=== PATIENT | female | born 1960 | race Caucasian/White ===

== ENCOUNTER 2018-02-17 08:06 | Emergency (ER) | payer OTHER ==
[2018-02-17 08:33] VITALS: BP 109/94
[2018-02-17] MEDS ORDERED: Cephalexin CAP* 500 MG PO ONE (09:02)
--- NOTE | 2018-02-17 09:02 | UC ---
Complaint Female HPI - HPI Summary HPI Summary: 57 yo female with UTI symptoms x 4 days no fever/chills no back pain IBS has been acting up - History Of Current Complaint Chief Complaint: UCGU Stated Complaint: URINARY COMPLAINT Time Seen by Provider: 02/17/18 08:57 Hx Obtained From: Patient Hx Last Menstrual Period: n/a Onset/Duration: Gradual Onset, Lasting Days Timing: Intermittent Severity Initially: Mild Severity Currently: Moderate Pain Intensity: 7 - with urination Pain Scale Used: 0-10 Numeric Character: Burning Aggravating Factor(s): Urination Associated Signs And Symptoms: Positive: Negative Related Hx: Similar Episode/Dx as: - UTI - Allergies/Home Medications Allergies/Adverse Reactions: Allergies Allergy/AdvReac Type Severity Reaction Status Date / Time codeine Allergy Vomiting Verified 02/17/18 08:26 hydrocodone Allergy Vomiting Verified 02/17/18 08:26 Sulfa (Sulfonamide Allergy Headache Verified 02/17/18 08:26 Antibiotics) Home Medications: Home Medications FLUoxetine CAP* [PROzac CAP*] 10 mg PO DAILY 02/17/18 [History Confirmed ] PMH/Surg Hx/FS Hx/Imm Hx Previously Healthy: Yes Respiratory History: Asthma GI/ History: Other Other GI/ History: IBS Psychological History: Anxiety, Depression - Surgical History Surgical History: Yes Surgery Procedure, Year, and Place: Hysterectomy, Lung surgery to remove a pin that was aspirated, appendectomy, 3x laproscopy, tonsillectomy, 2 dental surgeries - Family History Known Family History: Positive: Cardiac Disease, Hypertension, Respiratory Disease - Social History Alcohol Use: Rare Substance Use Type: None Smoking Status (MU): Former Smoker When Did the Patient Quit Smoking/Using Tobacco: 2007 - Immunization History Most Recent Tetanus Shot: 2012 Review of Systems Constitutional: Negative Skin: Negative Eyes: Negative ENT: Negative Respiratory: Negative Cardiovascular: Negative Gastrointestinal: Negative Genitourinary: Dysuria, Frequency, Urgency Motor: Negative Neurovascular: Negative Musculoskeletal: Negative Neurological: Negative Psychological: Negative Is Patient Immunocompromised?: No All Other Systems Reviewed And Are Negative: Yes Physical Exam Triage Information Reviewed: Yes Appearance: Well-Appearing, No Pain Distress, Well-Nourished Vital Signs: Initial Vital Signs Temp 98.5 F 02/17/18 08:29 Pulse 69 02/17/18 08:29 Resp 18 02/17/18 08:29 BP 109/94 02/17/18 08:29 Pulse Ox 100 02/17/18 08:29 Vital Signs Reviewed: Yes Eyes: Positive: Conjunctiva Clear Neck: Positive: Supple, Nontender Respiratory: Positive: Lungs clear, Normal breath sounds, No respiratory distress Cardiovascular: Positive: RRR, No Murmur Abdomen Description: Positive: Nontender, No Organomegaly. Negative: CVA Tenderness (R), CVA Tenderness (L) Bowel Sounds: Positive: Present Neurological: Positive: Alert Psychological Exam: Normal Skin Exam: Normal Complaint Female Dx - Course Course Of Treatment: Udip +++ leuks - Differential Dx/Diagnosis Provider Diagnoses: acute cystitis Discharge - Sign-Out/Discharge Documenting (check all that apply): Discharge - Discharge Plan Condition: Stable Disposition: HOME Prescriptions: Cephalexin CAP* [Keflex CAP*] 500 mg PO BID #10 cap Phenazopyridine TAB* [Pyridium TAB*] 100 mg PO TID #6 tab Patient Education Materials: Urinary Tract Infection in Women (ED) Forms: *Work Release Referrals: Mathew Barboza MD [Primary Care Provider] - 3 Days (if not better) Additional Instructions: recheck or new or worsening symptoms - Billing Disposition and Condition Condition: STABLE Disposition: HOME
[2018-02-17] MEDS ORDERED: Phenazopyridine TAB* 100 MG PO ONE (09:03)
== END 2018-02-17 09:12 | disposition home or self-care (01) ==
LOC: UCCORT 08:06
DX: N30.00 Acute cystitis without hematuria (principal); Z88.5 Allergy status to narcotic agent; Z88.2 Allergy status to sulfonamides
CPT/HCPCS: 81003; 87077; 87086; 87186; 99212; A9270-GY; G0463

== ENCOUNTER 2018-08-18 16:51 | Emergency (ER) | payer OTHER ==
--- OUTSIDE RECORDS SUMMARY | 2018-08-18 16:59 | XMS REPORT ---
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 Active Onset: 09/28/2011 Neck pain Janay Shell M.D. Active Onset: 09/28/2011 Allergic condition Janay Shell M.D. Active Onset: 04/10/2012 Diarrhea Janay Shell M.D. Active Onset: 09/05/2012 Migraine without aura, not refractory Mathew Barboza M.D. Active Onset: 09/05/2012 Anxiety state Mathew Barboza M.D. Active Onset: 09/05/2012 Depressive disorder Mathew Barboza M.D. Active Onset: 09/05/2012 Asthma without status asthmaticus Mathew Barboza M.D. Active Onset: 01/08/2013 Acute gastritis Mathew Barboza M.D. Active Onset: 01/08/2013 Malaise and fatigue Mathew Barboza M.D. Active Onset: 01/22/2013 Gastroesophageal reflux disease Mathew Barboza M.D. Active Onset: 03/19/2013 Irritable bowel syndrome Mathew Barboza M.D. Active Onset: 06/11/2013 Edema Mathew Barboza M.D. Active Onset: 07/09/2013 Acute sinusitis Mathew Barboza M.D. Active Onset: 07/02/2014 Rosacea Mathew Barboza M.D. Active Onset: 06/24/2015 Eruption Mathew Barboza M.D. Active Onset: 09/22/2015 Moderate recurrent major depression Mathew Barboza M.D. Active Onset: 06/14/2016 Conjunctivitis Mathew Barboza M.D. Active Onset: 10/29/2016 Mild intermittent asthma, Mathew Barboza M.D. 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 Cigarette Use Former Cigarette Smoker ETOH Use Rare Smoking Patient is a former smoker Exercise Type/Frequency Does not exercise Current Allergies, Adverse Reactions, Alerts Date Description Reaction Status Severity Comments 08/22/2009 codeine VOMITING active 08/22/2009 Vicodin VOMITING active 09/28/2011 Hydrocodone vomiting active 04/10/2012 Sulfa active Medications Medication Date Status Form Strength Qnty SIG Indications Ordering Provider Famotidine 04/20/ Active Tablets 40mg 30tabs 1 tab by [email or web address] Emelina 2018 mouth every Amy, 12 hours 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 HCL 2016 Two Capsules Midura, By Mouth M.D. Every Day For Anxiety And Depression Bupropion 08/15/ Active Tablets ER 100mg 60tabs Take Two F41.9 Mathew T. HCL ER (SR) 2014 12HR Tablets By Midura, Mouth Every M.D. Day F32.9 Proair HFA 01/16/2014 Active Aerosol 108(90Base) 8.500gm 2 puffs Mathew T. mcg/Act every 4 Midura, hours as M.D. 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 Dispers Tablet By Midura, Mouth AT M.D. Onset Of Migraine Then May Repeat In 2 Hours as Needed For Persistent Migraine Estradiol 10/21/2009 Active Tablets 1mg 30tabs Take One N Mathew T. Tablet By 9 Midura, Mouth Every 5 M.D. Day . 8 Doxycycline 05/19/2018 Hx Tablets 100mg 42tabs 1 by mouth L Emelina Hyclate - twice a day 0 Amy, 06/06/2018 for 21 days 3 SPLASH LINE OPERATOR . 3 1 3 Doxycycline 04/20/2018 Hx Capsules 100mg 14caps take one W Emelina Hyclate - capsule by 5 [facility], 05/19/2018 mouth twice 7 SPLASH LINE OPERATOR a day . x x x A Tobradex 06/14/2016 Hx Suspension 0.3-0.1% 5ml 1 GTT OS qid H Mathew T. - 1 , 09/14/2016 0 M.D. . 8 9 Acyclovir 09/22/2015 Hx Tablets 400mg 15tabs take 1 Mathew T. - tablet by , 04/20/2018 mouth three M.D. times a day Topiramate 09/22/2015 Hx Tablets 50mg 90tabs Take Three G Mathew T. - Tablets By 4 Mid, 04/20/2018 Mouth AT 3 M.D. Bedtime For . Migraine 0 Prevention 0 9 Fluocinonide 06/24/2015 Hx Solution 0.05% 60cc apply to 7 Mathew T. - affected 8 Mid, 09/22/2015 areas of the 2 M.D. scalp every . day as 1 needed Clotrimazole 06/24/2015 Hx Cream 1-0.05% 30gm apply twice 7 Mathew T. /Betamethaso - a day to 8 [facility], [place] 03/15/2016 affected 2 M.D. Dipropionate area as . Needed 1 Amoxicillin/ 07/02/2014 Hx Tablets 875-125mg 20tabs 1 bid w/ 4 Mathew T. Clavulanate - food. 6 [facility], Potassium 06/24/2015 1 M.D. . 8 Amoxicillin/ 01/16/2014 Hx Tablets 875-125mg 20tabs 1 po bid x 4 Isa Clavulanate - 10 days 6 Cedrick, [employer]GER IN[employer]MENT Potassium 01/26/2014 1 . 0 Prednisone 01/16/2014 Hx Tablets 20mg 10tabs 2 daily x 5 4 Isa - days 6 Cedrick MANAGER INVESTMENT 01/21/2014 6 . 0 Benzonatate 01/16/2014 Hx Capsules 100mg 30caps 1 po tid prn 4 Isa - for cough 6 ELOISA Philip 01/26/2014 6 . 0 Amoxicillin/ 07/09/2013 Hx Tablets 875-125mg 20tabs 1 po bid 4 Mathew T. Potassium - 6 [facility], Clavulanate 01/16/2014 1 M.D. . 8 Bumetanide 06/11/2013 Hx Tablets 1mg 30tabs 1 po qd prn 7 Mathew T. - for fluid 8 [facility], 01/16/2014 retention 2 M.D. . 3 Potassium 06/11/2013 Hx Tablets ER 20Meq 30tabs 1 po qd 7 Mathew T. Chloride ER - 8 [facility], 01/16/2014 2 M.D. . 3 Risperidone 05/06/2013 Hx Tablets 0.5mg 60tabs Take One Mathew T. - Tablet By [facility], 01/16/2014 Mouth Twice M.D. A Day Omeprazole 01/08/[address] 40mg 30caps Take One Mathew T. - Capsule By [facility], 06/14/2016 Mouth Every M.D. Morning For Stomach Topiramate 09/05/2012 Hx Tablets 50mg 120tabs take 3-4 3 Mathew T. - tablets at 4 [facility], 06/11/2013 bedtime for 6 M.D. headache . 1 0 Note For 04/25/2012 Hx patient may Janay Ontiveros Work - return to [facility], 09/05/2012 work without M.D. restrictions Note For 04/20/2012 Hx patient was Janay Ontiveros Work - unable to [facility], 04/25/2012 work 04/10/12 M.D. through 04/14/12 due to illness. Work Excuse 04/18/2012 Hx can only Constantine Burr - work half [employer], 09/05/2012 time this M.D. week call Metronidazol 04/10/2012 Hx Tablets 500mg 42tabs 1 po tid for 7 Janay King. e - 14 days 8 [facility], 09/05/2012 7 M.D. . 9 1 Note For 04/10/2012 Hx pt. is ill 7 Janay Ontiveros Work - and unable 8 [facility], 04/20/2012 to work at 7 M.D. this time; i . anticipate 9 she will 1 return 04/17/12 Proair HFA 09/28/2011 Hx Aerosol 108(90Base) 8.500gm 2 puffs Mathew T. - mcg/ac every 4 Midura, 01/16/2014 hours as M.D. needed Fexofenadine 09/28/2011 Hx Tablets 180mg 30tabs 1 po qd 9 Janay King. HCL - 9 [facility], 04/10/2012 5 M.D. . 3 Physical 09/28/2011 Hx dx: neck [facility]ay [facility]os [facility] headaches, M.D. cervicalgia; assess and treat Bactrim DS 06/24/2011 Hx Tablets 800-160mg 10tabs 1 po bid Emelina - von Kathy, 09/28/2011 M.D. Pyridium 06/24/2011 Hx Tablets 100mg 9tabs 1 tid prn Emelina - bladder pain tisha Chavez, 09/28/2011 M.D. Tramadol HCL 08/11/2010 Hx Tablets 50mg 60tabs 1 or 2 7 Janay M. - tablets 8 , 09/28/2011 every 8 4 M.D. hours as . needed 0 Physical 08/11/2010 Hx neck pain/ 7 Janay King. Therapy - headaches/ 2 [facility], 09/29/2010 degenerative 3 M.D. disc . disease: 1 assess and treat, hep Maxalt 08/11/2010 Hx Tablets 10mg 30tabs 1 tab at 7 Janay M. - onset of 8 [facility], 09/28/2011 migraine, 4 M.D. may repeat . in 2 hours 0 if needed for persistent migraine melting tablets Feet 04/14/2010 Hx patient has 7 Janay M. Swelling - intermittent 8 [facility], 09/29/2010 swelling of 2 M.D. feet that . requires the 3 wearing of sneakers Lidoderm 09/19/2009 Hx Patches 5% 30units apply bid , 3 Janay M. - prn 5 [facility], 02/23/2010 5 M.D. . 6 Maxalt 08/22/2009 Hx Tablets 5mg 9tabs one po prn, Janay M. - take another [facility], 08/11/2010 in two hours M.D. prn Albuterol 08/22/2009 Hx Aerosol 2 puffs Family - q4hrs prn Medicine 09/28/2011 [facility] Resperidone 08/22/2009 Hx 0.5mg 60units 1 po bid Mathew Barboza, 06/11/2013 M.D. Estratest 08/22/2009 Hx Tablets Family - Medicine 10/21/2009 [facility] Zoloft 08/22/2009 Hx Tablets 50mg 30tabs Take One Mathew Banks - Tablet By Jabari, 01/16/2014 Mouth Every M.D. Day Vital Signs Date Vital Result Comment 08/01/2018 BP Systolic 120 mmHg BP Diastolic 70 mmHg Heart Rate 72 /min Body Temperature 98.2 F Respiratory Rate 16 /min Weight 177.38 lb 06/06/2018 BP Systolic 110 mmHg BP Diastolic 68 mmHg Heart Rate 76 /min Body Temperature 98.2 F Respiratory Rate 18 /min Height 65.75 inches 5'5.75" Weight 180.00 lb BMI (Body Mass Index) 29.3 kg/m2 05/23/2018 BP Systolic 106 mmHg BP Diastolic 54 mmHg Heart Rate 74 /min Body Temperature 98.6 F Height 65.75 inches 5'5.75" Weight 177.00 lb BMI (Body Mass Index) 28.8 kg/m2 05/19/2018 BP Systolic 110 mmHg BP Diastolic 66 mmHg Heart Rate 74 /min Body Temperature 98.1 F Respiratory Rate 16 /min Height 65.75 inches 5'5.75" 04/20/2018 BP Systolic 120 mmHg BP Diastolic 80 mmHg Heart Rate 72 /min Body Temperature 98.6 F Respiratory Rate 16 /min Height 65.75 inches 5'5.75" Weight 181.00 lb BMI (Body Mass Index) 29.4 kg/m2 03/11/2017 BP Systolic 130 mmHg BP Diastolic 80 mmHg Heart Rate 78 /min Body Temperature 98.1 F Respiratory Rate 16 /min Height 65.75 inches 5'5.75" Weight 167.12 lb BMI (Body Mass Index) 27.2 kg/m2 01/04/2017 BP Systolic 120 mmHg BP Diastolic 78 mmHg Heart Rate 84 /min Body Temperature 98.2 F Height 65.75 inches 5'5.75" Weight 162.25 lb BMI (Body Mass Index) 26.4 kg/m2 10/29/2016 BP Systolic 134 mmHg BP Diastolic 84 mmHg Heart Rate 102 /min Body Temperature 98.1 F Respiratory Rate 18 /min Height 65.75 inches 5'5.75" Weight 165.38 lb BMI (Body Mass Index) 26.9 kg/m2 09/14/2016 BP Systolic 110 mmHg BP Diastolic 70 mmHg Heart Rate 78 /min Body Temperature 98.1 F Respiratory Rate 16 /min Height 65.75 inches 5'5.75" Weight 168.38 lb BMI (Body Mass Index) 27.4 kg/m2 06/14/2016 BP Systolic 100 mmHg BP Diastolic 60 mmHg Heart Rate 78 /min Body Temperature 97.7 F Respiratory Rate 16 /min Height 65.75 inches 5'5.75" Weight 166.25 lb BMI (Body Mass Index) 27.0 kg/m2 03/15/2016 BP Systolic 104 mmHg BP Diastolic 62 mmHg Heart Rate 60 /min Body Temperature 98.6 F Respiratory Rate 16 /min Height 65.75 inches 5'5.75" Weight 178.38 lb BMI (Body Mass Index) 29.0 kg/m2 01/20/2016 BP Systolic 124 mmHg BP Diastolic 72 mmHg Heart Rate 76 /min Body Temperature 98.0 F Respiratory Rate 16 /min Height 65.75 inches 5'5.75" Weight 180.00 lb BMI (Body Mass Index) 29.3 kg/m2 09/22/2015 BP Systolic 108 mmHg BP Diastolic 72 mmHg Heart Rate 80 /min Body Temperature 98.1 F Respiratory Rate 16 /min Height 65.75 inches 5'5.75" Weight 188.12 lb BMI (Body Mass Index) 30.6 kg/m2 Right Visual Acuity Distance 20/50 Left Visual Acuity Distance 20/30 08/15/2015 BP Systolic 126 mmHg BP Diastolic 70 mmHg Heart Rate 78 /min Body Temperature 98.9 F Respiratory Rate 16 /min Height 65.75 inches 5'5.75" Weight 191.50 lb BMI (Body Mass Index) 31.1 kg/m2 06/24/2015 BP Systolic 122 mmHg BP Diastolic 82 mmHg Heart Rate 74 /min Body Temperature 98.6 F Height 65.75 inches 5'5.75" Weight 192.00 lb BMI (Body Mass Index) 31.2 kg/m2 07/02/2014 BP Systolic 112 mmHg BP Diastolic 80 mmHg Heart Rate 84 /min Body Temperature 98.5 F Respiratory Rate 20 /min Height 65.75 inches 5'5.75" Weight 210.00 lb BMI (Body Mass Index) 34.1 kg/m2 06/05/2014 BP Systolic 132 mmHg BP Diastolic 80 mmHg Heart Rate 84 /min Body Temperature 97.9 F Respiratory Rate 20 /min Height 65.75 inches 5'5.75" Weight 207.00 lb BMI (Body Mass Index) 33.7 kg/m2 01/16/2014 BP Systolic 126 mmHg BP Diastolic 74 mmHg Heart Rate 90 /min Body Temperature 98.3 F Respiratory Rate 20 /min O2 % BldC Oximetry 98 % Height 65.75 inches 5'5.75" Weight 214.00 lb BMI (Body Mass Index) 34.8 kg/m2 07/09/2013 BP Systolic 110 mmHg BP Diastolic 80 mmHg Heart Rate 88 /min Body Temperature 98.3 F Height 65.75 inches 5'5.75" Weight 213.00 lb BMI (Body Mass Index) 34.6 kg/m2 06/11/2013 BP Systolic 104 mmHg BP Diastolic 70 mmHg Heart Rate 76 /min Body Temperature 98.9 F Respiratory Rate 18 /min Height 65.75 inches 5'5.75" Weight 216.00 lb BMI (Body Mass Index) 35.1 kg/m2 03/19/2013 BP Systolic 102 mmHg BP Diastolic 70 mmHg Heart Rate 88 /min Body Temperature 98.8 F Height 65.75 inches 5'5.75" Weight 208.00 lb BMI (Body Mass Index) 33.8 kg/m2 Right Visual Acuity Distance 20/40 Left Visual Acuity Distance 20/30 01/22/2013 BP Systolic 100 mmHg BP Diastolic 62 mmHg Heart Rate 80 /min Body Temperature 97.8 F Height 66 inches 5'6" Weight 210.00 lb BMI (Body Mass Index) 33.9 kg/m2 01/08/2013 BP Systolic 100 mmHg BP Diastolic 70 mmHg Heart Rate 72 /min Body Temperature 97.9 F Height 66 inches 5'6" Weight 210.00 lb BMI (Body Mass Index) 33.9 kg/m2 10/06/2012 BP Systolic 100 mmHg BP Diastolic 60 mmHg Heart Rate 72 /min Body Temperature 98.4 F Height 66 inches 5'6" Weight 205.00 lb BMI (Body Mass Index) 33.1 kg/m2 09/05/2012 BP Systolic 110 mmHg BP Diastolic 60 mmHg Heart Rate 78 /min Body Temperature 98.5 F Respiratory Rate 20 /min Height 66 inches 5'6" Weight 208.00 lb BMI (Body Mass Index) 33.6 kg/m2 04/10/2012 BP Systolic 106 mmHg BP Diastolic 70 mmHg Heart Rate 84 /min Body Temperature 98.6 F Height 66 inches 5'6" Weight 202.00 lb BMI (Body Mass Index) 32.6 kg/m2 09/28/2011 BP Systolic 120 mmHg BP Diastolic 70 mmHg Heart Rate 72 /min Body Temperature 97.5 F Height 66 inches 5'6" Weight 199.00 lb BMI (Body Mass Index) 32.1 kg/m2 08/11/2010 BP Systolic 108 mmHg BP Diastolic 70 mmHg Heart Rate 72 /min Body Temperature 97.2 F Height 66 inches 5'6" Weight 204.00 lb BMI (Body Mass Index) 32.9 kg/m2 04/14/2010 BP Systolic 102 mmHg BP Diastolic 68 mmHg Heart Rate 76 /min Weight 207.00 lb 03/31/2010 BP Systolic 102 mmHg BP Diastolic 72 mmHg Heart Rate 68 /min Weight 207.00 lb 02/27/2010 BP Systolic 98 mmHg BP Diastolic 78 mmHg Heart Rate 74 /min Weight 200.00 lb 02/23/2010 BP Systolic 102 mmHg BP Diastolic 70 mmHg Heart Rate 72 /min Weight 200.00 lb 12/10/2009 BP Systolic 100 mmHg BP Diastolic 70 mmHg Heart Rate 68 /min Respiratory Rate 18 /min Height 66 inches 5'6" Weight 191.00 lb BMI (Body Mass Index) 30.8 kg/m2 10/21/2009 BP Systolic 98 mmHg BP Diastolic 60 mmHg Heart Rate 72 /min Height 66 inches 5'6" Weight 191.00 lb BMI (Body Mass Index) 30.8 kg/m2 09/19/2009 BP Systolic 110 mmHg BP Diastolic 72 mmHg Heart Rate 72 /min Body Temperature 98.1 F Respiratory Rate 16 /min Weight 195.00 lb 08/22/2009 BP Systolic 112 mmHg BP Diastolic 74 mmHg Heart Rate 80 /min Height 66 inches 5'6" Weight 194.00 lb BMI (Body Mass Index) 31.3 kg/m2 Results Test Date Test Result H/L Range Note Lyme, Western Blot, Serum 05/19/2018 IgG P93 Ab. Absent 1 IgG P66 Ab. Absent 1 IgG P58 Ab. Absent 1 IgG P45 Ab. Absent 1 IgG P41 Ab. Absent 1 IgG P39 Ab. Absent 1 IgG P30 Ab. Absent 1 IgG P28 Ab. Absent 1 IgG P23 Ab. Absent 1 IgG P18 Ab. Absent 1 Lyme IgG WB Interp. Negative 1, 2 IgM P41 Ab. Absent 1 IgM P39 Ab. Absent 1 IgM P23 Ab. Absent 1 Lyme IgM WB Interp. Negative 1, 3 Comprehensive Metabolic Prof 04/20/2018 Sodium 134 mEq/L 134-149 Potassium 3.9 mEq/L 3.6-5.5 Chloride 96 mEq/L 94-112 Carbon Dioxide 26 mEq/L 21-32 Glucose 87 mg/dL 70-105 BUN 15 mg/dL 6-26 Creatinine 1.1 mg/dL 0.6-1.4 BUN/Creat Ratio 13.6 CALC 8.0-36.0 Calcium 9.3 mg/dL 8.6-10.2 Total Protein 6.6 g/dL 6.4-8.3 Albumin 4.3 g/dL 3.8-5.5 Globulin 2.3 g/dL 2.0-4.8 A/G Ratio 1.9 CALC 0.6-2.3 Alk. Phosphatase 50 U/L 30-110 Alt (SGPT) 15 U/L 7-35 Ast (Sgot) 8 U/L 5-34 Total Bilirubin 0.4 mg/dL 0.2-1.3 GFR Non- 55 ml/min/1.73m^ Low >=60 GFR >60 ml/min/1.73m^ >=60 Laboratory test finding 04/20/2018 TSH 2.85 mIU/L 0.50-6.00 Free T4 1.01 ng/dL 0.75-1.54 CBC Electronic ([facility] New) 04/20/2018 WBC 5.27 4.0-10.0 RBC 4.47 3.93-6.0 Hemoglobin (Fma/CMC/CTX) 13.3 g/dL 12.0-17.0 Hematocrit (Fma/CMC/CTX) 38.5 % 35.0-50.0 Mean Corpuscular Vol 86.1 fL 80-95 Mean Corpuscular Hemoglobin 29.8 pg 25.6-32.2 Mean Corpuscular Hemo Concen 34.5 g/dL 32.2-36.0 Platelets 230 10^3/ul 163-400 RDW-CV 11.7 11.6-14.4 Mean Platelet Volume 10.3 fL 9.4-12.4 Absolute Neutrophils BLD 3.00 1.56-6.13 Absolute Lymphocytes 1.49 1.18-3.74 Absolute Monocytes BLD Auto 0.52 0.24-0.82 Absolute Eos Blood 0.21 0.04-0.54 Absolute Basophils 0.04 0.01-0.08 Neutrophil % 56.8 34.0-70.0 Lymph% 28.3 % 20.0-52.0 Monocytes % 9.9 % 5.0-12.0 Eos % 4.0 % 0.7-7.0 Basophil% 0.8 % 0.1-1.2 Lyme, Western Blot, Serum 04/20/2018 IgG P93 Ab. Absent 1 IgG P66 Ab. Absent 1 IgG P58 Ab. Absent 1 IgG P45 Ab. Absent 1 IgG P41 Ab. Absent 1 IgG P39 Ab. Absent 1 IgG P30 Ab. Absent 1 IgG P28 Ab. Absent 1 IgG P23 Ab. Absent 1 IgG P18 Ab. Absent 1 Lyme IgG WB Interp. Negative 1, 4 IgM P41 Ab. Absent 1 IgM P39 Ab. Absent 1 IgM P23 Ab. Absent 1 Lyme IgM WB Interp. Negative 1, 5 Poc Urinalysis 02/17/2018 Poc Glucose, Urine Negative Negative Poc Bilirubin, Urine Negative Negative Poc Ketone, Urine Negative Negative Poc Specific [place], Urine 1.020 1.010-1.030 Poc Blood, Urine Trace-lysed Negative Poc pH, Urine 5.5 5-9 Poc Protein, Urine Negative Negative Poc Urobilinogen, Urine 0.2 Negative Poc Nitrite, Urine Negative Negative Poc Leukocytes, Urine 3+ Negative Poc Color, Urine Yellow Poc Clarity, Urine Cloudy 6 Laboratory test 02/17/2018 Urine Culture And SEE RESULT BELOW 7, 8 finding Sensitivities Laboratory test 10/25/2017 Surgical Interface Order SEE RESULT BELOW 9 , 10 finding Vaginitis Plus Nuswab 01/04/2017 Atopobium vaginae High - 2 Score 11 Bvab 2 High - 2 Score 11 Megasphaera 1 High - 2 Score 11, 12 Kaylin albicans, Lindsay Negative Negative 11 Kaylin glabrata, Lindsay Negative Negative 11, 13 Trich vag by Lindsay Negative Negative 11 Chlamydia trachomatis, Lindsay Negative Negative 11 Neisseria gonorrhoeae, Lindsay Negative Negative 11 Complete Blood Count 09/22/2015 WBC 6.5 x10^3/UL 3.6-9.6 RBC 4.91 x10^6/UL 3.90-5.70 HGB 14.5 g/dL 12.1-17.2 HCT 43 % 36-50 MCV 88.0 fL 82.2-97.4 MCH 29.6 pg 27.6-33.3 MCHC 33.5 g/dL 33.0-35.5 RDW 13.2 % 11.6-13.7 PLT 241 x10^3/UL 150-400 MPV 8.2 fL 7.4-10.4 Gran # 4.3 x10^3/UL 1.5-7.2 Lymph# 1.9 x10^3/UL 0.7-4.9 [place]# 0.3 x10^3/UL 0.1-0.9 Gran % 64.6 % 42.2-75.2 Lymph % 29.9 % 20.5-51.1 [place]% 5.5 % 1.7-9.3 Comprehensive Metabolic Prof 09/22/2015 Sodium 141 mEq/L 134-149 Potassium 4.3 mEq/L 3.6-5.5 Chloride 100 mEq/L 94-112 Carbon Dioxide 25 mEq/L 21-32 Glucose 103 mg/dL 70-105 BUN 16 mg/dL 6-26 Creatinine 1.1 mg/dL 0.6-1.4 BUN/Creat Ratio 14.5 CALC 8.0-36.0 Calcium 9.4 mg/dL 8.6-10.2 Total Protein 7.0 g/dL 6.4-8.3 Albumin 4.5 g/dL 3.8-5.5 Globulin 2.5 g/dL 2.0-4.8 A/G Ratio 1.8 CALC 0.6-2.3 Alk. Phosphatase 63 U/L 30-110 Alt (SGPT) 20 U/L 7-35 Ast (Sgot) 13 U/L 5-34 Total Bilirubin 0.5 mg/dL 0.2-1.3 GFR Non- 55 ml/min/1.73m^ Low >=60 GFR >60 ml/min/1.73m^ >=60 Lipid Profile 09/22/2015 Cholesterol 227 mg/dL High 120-200 Triglycerides 238 mg/dL High 30-200 HDL Cholesterol 49 mg/dL 30-85 LDL (Calculated) 130 CALC High 0-129 VLDL Cholesterol 48 mg/dL 0-50 HDL Risk Factor 4.6 CALC High 0.0-4.4 Ua - Non Micro (Fma) 09/22/2015 Appearance clear Color yellow Glucose, Urine (Fma/CMC/CTX) neg Bilirubin neg Ketones neg SP Grav <1.005 Blood neg PH 6.0 Protein neg Urobil 0.2 Nitrite neg Leukocytes (a/[facility]/[facility]) neg Urine Culture And 12/24/2014 Urine Culture (SEE NOTE) 14 Sensitivities Laboratory test finding 06/05/2014 C Reactive Protein 11.93 mg/L High < 5.00 15 Transglutaminase Igg & 06/05/2014 Tissue Transglutaminase <1.2 U/mL 16 Iga IgA Ab Tissue Transglutaminase IgG Ab <1.2 U/mL 17 Anti Gliadin Igg And Iga AB 06/05/2014 Gliadin IgG <10.0 U 18 Gliadin IgA <10.0 U 19 Laboratory test finding 06/05/2014 Sed Rate (a/[facility] [place]/[facility]) 6mm Ua - Non Micro (Fma) 03/19/2013 Appearance yellow Color clear Glucose neg Bilirubin neg Ketones neg SP Grav 1.025 Blood neg PH 5.5 Protein neg Urobil 0.2 Nitrite neg Leukocytes (Fma/CMC/[facility]) neg Laboratory test finding 03/19/2013 LDL (Direct) 128 mg/dL 0-130 Lipid Profile 03/19/2013 Cholesterol 255 mg/dL High 120-200 HDL 43 mg/dL 30-85 Triglycerides 384 mg/dL High 30-200 HDL Risk Factor 6.0 CALC High 0.0-4.4 LDL (Calculated) 135 CALC High 0-129 20 VLDL (Calculated) 77 mg/dL High 0-50 CBC Electronic (a) 01/08/2013 WBC 6.0 3.6-9.6 RBC 4.82 3.90-5.70 Hemoglobin (Fma/CMC/CTX) 14.4 g/dL 12.1 - 17.2 Hematocrit (Fma/CMC/CTX) 42.6 % 36.1 - 50.3 Platelets 204 10^3/ul 150-400 Lymph% 31.7 20.5-51.1 Mixed% 4.7 Neutrophils % 63.6 Mean Corpuscular Vol 88 82.2-97.4 Mean Corpuscular Hemoglobin 29.9 27.6-33.3 Mean Corpuscular Hemo Concen 33.8 32.0-36.0 RDW 11.4 Low 11.6-13.7 Mean Platelet Volume 8.4 6.5-11.0 Laboratory test finding 01/08/2013 Free T4 0.95 ng/dL 0.75-1.54 TSH 2.90 mIU/L 0.50-6.00 Comprehensive Metabolic Prof 01/08/2013 Albumin 4.6 g/dL 3.8-5.5 Alk. Phos. 76 U/L 30-110 Alt (SGPT) 19 U/L 7-35 Ast (Sgot) 13 U/L 5-34 BUN 21 mg/dL 6-26 Calcium 9.9 mg/dL 8.6-10.2 Chloride 102 mEq/L 94-112 Creatinine 1.2 mg/dL 0.6-1.4 Carbon Dioxide 23 mEq/L 21-32 Glucose 101 mg/dL 70-105 Sodium 137 mEq/L 134-149 Total Bilirubin 0.3 mg/dL 0.2-1.3 Total Protein 7.3 g/dL 6.3-8.1 Potassium 4.4 mEq/L 3.6-5.5 Globulin 2.7 g/dL 2.0-4.8 A/G Ratio 1.7 Calc 0.6-2.3 BUN/Creat Ratio 18.4 Calc 8.0-36.0 Laboratory test finding 10/10/2012 Surgical Pathology RUN DATE: <SEE NOTE> Culture Stool 04/10/2012 M 22 <SEE NOTE> Comprehensive Metabolic 04/10/2012 Albumin 4.4 g/dL 3.8-5.5 Prof King Phos. 78 U/L 30-110 Alt (SGPT) 13 U/L 7-35 Ast (Sgot) 8 U/L 5-34 BUN 14 mg/dL 6-26 Calcium 9.1 mg/dL 8.6-10.2 Chloride 95 mEq/L 94-112 Creatinine 1.1 mg/dL 0.6-1.4 Carbon Dioxide 24 mEq/L 21-32 Glucose 95 mg/dL 70-105 Sodium 135 mEq/L 134-149 Total Bilirubin 0.5 mg/dL 0.2-1.3 Total Protein 6.6 g/dL 6.3-8.1 Potassium 4.0 mEq/L 3.6-5.5 Globulin 2.3 g/dL 2.0-4.8 A/G Ratio 1.9 Calc 0.6-2.2 BUN/Creat Ratio 12.9 Calc 8.0-36.0 CBC Electronic ([facility]) 04/10/2012 WBC 10.5 High 3.6-9.6 RBC 4.59 3.90-5.70 Hemoglobin (Fma/CMC/CTX) 13.5 g/dL 12.1 - 17.2 Hematocrit (Fma/CMC/CTX) 42.0 % 36.1 - 50.3 Platelets 278 10^3/ul 150-400 Lymph% 18.7 Low 20.5-51.1 Mixed% 4.0 Neutrophils % 77.3 Mean Corpuscular Vol 91 82.2-97.4 Mean Corpuscular Hemoglobin 29.3 27.6-33.3 Mean Corpuscular Hemo Concen 32.1 32.0-36.0 RDW 13.5 11.6-13.7 Mean Platelet Volume 7.7 6.5-11.0 Ua - Non Micro ([facility]) 12/10/2009 Appearance CLEAR Color YELLOW Glucose, Urine (Fma/CMC/CTX) NEG Bilirubin ICTO NEG Ketones TRACE SP Grav 1.020 Blood NEG PH 6.0 Protein NEG Urobil 1.0EU/DL Nitrite NEG Leukocytes ([facility] [place]/[facility]) NEG Surgical Pathology 10/06/2009 Surgical Pathology <SEE NOTE > 23 1 1 sst 2 Positive: 5 of the following Borrelia-specific bands: 18,23,28,30,39,41,45,58, 66, and 93. Negative: No bands or banding patterns which do not meet positive criteria. 3 Note: An equivocal or positive EIA result followed by a negative Western Blot result is considered NEGATIVE. An equivocal or positive EIA result followed by a positive Western Blot is considered POSITIVE by the CDC. Positive: 2 of the following bands: 23,39 or 41 Negative: No bands or banding patterns which do not meet positive criteria. Criteria for positivity are those recommended by CDC/[facility]. p23=Osp C, x93=topchhqcc Note: Sera from individuals with the following may cross react in the Lyme Western Blot assays: other spirochetal diseases (periodontal disease, leptospirosis, relapsing fever, yaws, and pinta); connective autoimmune (Rheumatoid Arthritis and Systemic Lupus Erythematosus and also individuals with Antinuclear Antibody); other infections (Montura Spotted Fever; Gary-Broderick Virus, and Cytomegalovirus). 4 Positive: 5 of the following Borrelia-specific bands: 18,23,28,30,39,41,45,58, 66, and 93. Negative: No bands or banding patterns which do not meet positive criteria. 5 Note: An equivocal or positive EIA result followed by a negative Western Blot result is considered NEGATIVE. An equivocal or positive EIA result followed by a positive Western Blot is considered POSITIVE by the CDC. Positive: 2 of the following bands: 23,39 or 41 Negative: No bands or banding patterns which do not meet positive criteria. Criteria for positivity are those recommended by CDC/ASTPHLD. p23=Osp C, o66=eijdjjxnt Note: Sera from individuals with the following may cross react in the Lyme Western Blot assays: other spirochetal diseases (periodontal disease, leptospirosis, relapsing fever, yaws, and pinta); connective autoimmune (Rheumatoid Arthritis and Systemic Lupus Erythematosus and also individuals with Antinuclear Antibody); other infections (Montura Spotted Fever; Gary-Broderick Virus, and Cytomegalovirus). 6 Strike On Machine Operator: [id number] SEE RESULT BELOW Name: BENSONSOFÍA S : [address]: Luís Hankins MD Acct: [id number] Unit: [id number] AGE: 57 Location: [facility] Re02/17/18 SEX: F Status: DEP ER SPEC: [id number] SADA: 02/17/[address] [facility] [address]: Luís Hankins MD REQ: [id number] RECD: 02/17/18 STATUS: STACIA BARNES DR: Mathew Barboza MD [facility] _ SOURCE: URINE SPDESC: ORDERED: Urine Culture COMMENTS: [id number] Procedure Result Reported Site Urine Culture Final 02/20/18- 812 ML Organism 1 STAPHYLOCOCCUS EPIDERMIDIS [place] Count >100,000 (Many) CFU/ML 1. STAPHYLOCOCCUS EPIDERMIDIS M.I.C. RX --------- ------ Penicillin >=0.5 R Gentamicin <=0.5 S Linezolid 2 S Nitrofurantoin <=16 S Oxacillin <=0.25 S * Quinupristin/Dalfopristin <=0.25 S Rifampin <=0.5 S Tetracycline 2 S Doxycycline - Deduced S * Minocycline - Deduced S Tigecycline 0.25 S Vancomycin 1 S Imipenem-Deduced S * Ampicillin/Sulbactam-Deduced S Cefazolin-Deduced S CONTINUED ON NEXT PAGE DEPARTMENT OF PATHOLOGY, [address] [place] [address] Ant Balbuena M.D. Director [facility] # [id number] Patient: SOFÍA KNOWLES [id number] (Continued) Specimen: [id number] Collected: 02/17/18 Received: 02/17/18 (Continued) Procedure Result Reported Site Urine Culture Final (continued) * These antibiotics are not available in the [facility] Formulary Contact the Microbiology Department for any additional antibiotic reporting. * ML - Main Lab . END OF REPORT DEPARTMENT OF PATHOLOGY, [address] [place] [address] Ant Balbuena M.D. Director [facility] # [id number] SEE RESULT BELOW Name: SOFÍA KNOWLES : [address]: Sher Ross MD Acct: [id number] Unit: [id number] AGE: 56 Location: [facility] Re/28/17 SEX: F Status: DEP REF SPEC: [id number] SADA: 10/25/[address] [facility] [address]: Sher Ross MD REQ: [id number] RECD: 10/25/17 STATUS: KENDRA BARNES DR: Mahtew Barboza MD _ ORDERED: LEVEL 4 COMMENTS: [id number] FINAL DIAGNOSIS Colon, at 10 cm, biopsy: -- Hyperplastic polyp. CLINICAL HISTORY Screening, increased risk, history of polyps POST-OPERATIVE DIAGNOSIS Colonoscopy to terminal ileum ? polyp at 10 cm biopsied; 10 years GROSS DESCRIPTION The specimen is received in formalin labeled, Biopsy Colon Polyp at 10 cm, and consists of a 0.3 x 0.2 x 0.1 cm huerta-white irregular soft tissue fragment which is submitted entirely in one cassette. Signed (signature on file) Emelina Valenzuela MD 1056 END OF REPORT * ML=Testing performed at Main Lab DEPARTMENT OF PATHOLOGY, [address] [place] [address] Ant Balbuena M.D. Director [facility] # [id number] 11 1 aptima swab 12 Calculate total score by adding the 3 individual bacterial vaginosis (BV) marker scores together. Total score is interpreted as follows: Total score 0-1: Indicates the absence of BV. Total score 2: Indeterminate for BV. Additional clinical data should be evaluated to establish a diagnosis. Total score 3-6: Indicates the presence of BV. This test was developed and its performance characteristics determined by [employer]. It has not been cleared or approved by the Food and Drug Administration. The FDA has determined that such clearance or approval is not necessary. 13 This test was developed and its performance characteristics determined by [facility]. It has not been cleared or approved by the Food and Drug Administration. The FDA has determined that such clearance or approval is not necessary. 14 RUN DATE: 12/26/14 [facility] LAB LIVE PAGE 1 RUN TIME: [address] [place] [address] Specimen Inquiry Name: SOFÍA KNOWLES : [address]: Luís Hankins MD Acct: [id number] Unit: [id number] AGE: 54 Location: [facility] Re12/24/14 SEX: F Status: DEP ER SPEC: [id number] SADA: 12/24/[address] [facility] [address]: Luís Hankins MD REQ: [id number] RECD: 12/24/14 STATUS: STACIA BARNES DR: Mathew Barboza MD _ SOURCE: URINE SPDESC: ORDERED: Urine Culture Procedure Result Verified Site Urine Culture Final 12/26/14- 0857 ML Organism 1 ESCHERICHIA COLI [place] Count 25-50,000 (Moderate) CFU/ML 1. ESCHERICHIA COLI M.I.C. RX --------- ------ Ampicillin 4 S Cefazolin <=4 S Cefepime <=1 S Ceftriaxone <=1 S Ciprofloxacin <=0.25 S Gentamicin <=1 S Levofloxacin <=0.12 S Meropenem <=0.25 S Nitrofurantoin <=16 S Tetracycline <=1 S Pipercillin/Tazobactam <=4 S Trimethoprim/Sulfamethoxazole <=20 S Amoxicillin/Clavulanic Acid <=2 S Aztreonam <=1 S Contact the Microbiology Department for any additional antibiotic reporting. END OF REPORT * ML=Testing performed at Main Lab DEPARTMENT OF PATHOLOGY, [address] [place] [address] Ant Balbuena M.D. Director [facility] # [id number] Acute inflammation: >10.00 16 -- REFERENCE VALUE -- <4.0 (Negative) 17 -- REFERENCE VALUE -- <6.0 (Negative) Test Performed by: [facility] - [address] [address] Developer Support Engineer: Torito Santos III, M.D. 18 -- REFERENCE VALUE -- <20.0 (Negative) Test Performed by: [address] [address] Developer Support Engineer: Torito Santos III, M.D. 19 -- REFERENCE VALUE -- <20.0 (Negative) 20 invalid 21 RUN DATE: 10/11/12 [facility] LAB LIVE PAGE 1 RUN TIME: [address] [place] [address] Specimen Inquiry Name: SOFÍA KNOWLES : [address]: Sher Ross MD Acct: [id number] Unit: [id number] AGE: 51 Location: [facility] Re10/10/12 SEX: F Status: REG REF SPEC: [id number] SADA: 10/10/12- SUBM DR: Sher Ross MD REQ: [id number] RECD: 10/10/121135 STATUS: KENDRA BARNES DR: Kaushal REYES,Pietro _ ORDERED: LEVEL IV/2 FINAL DIAGNOSIS 1. Colon, terminal ileum, biopsy: Hyperplastic polyp. 2. Colon, 10 cm., biopsy: A. Tubular adenoma. B. No high grade dysplasia or malignancy. CLINICAL HISTORY Personal history of polyps POST-OPERATIVE DIAGNOSIS To terminal ileum - 2 polyps, one at 30 (2 mm.) and one at 10 (2 mm.) both biopsied GROSS DESCRIPTION 1. The specimen is received in formalin labelled Sofía Knowles, Biopsy Colon Polyp at 30 cm., and consists of multiple huerta, soft tissue fragments measuring 0.5 x 0.2 x 0.1 cm. Submitted entirely, one cassette. 2. The specimen is received in formalin labelled Sofía S. Benson, Biopsy Colon Polyp at 10 cm., and consists of a huerta, soft tissue fragment measuring 0.2 x 0.2 x 0.2 cm. Submitted entirely, one cassette. Signed (signature on file) Ant Balbuena MD 1558 END OF REPORT * ML=Testing performed at Main Lab DEPARTMENT OF PATHOLOGY, [address] [place] [address] Ant Balbuena M.D. Director [facility] Permit #[id number] RUN DATE: 04/12/12 [facility] LIVE PAGE 1 RUN TIME: 1233 Specimen Inquiry RUN USER: INTERFACE Name: SOFÍA KNOWLES Status: REG REF Re04/10/12 Age/Sex: 51/F Unit#: [id number] Location: [facility] : 62 SPEC #: [id number] SADA: 04/10/12 STATUS: COMP REQ #: [id number] RECD: 04/10/12-[address] [facility] [address]: Janay Shell MD SOURCE: STOOL ENTR: 04/10/12-[address]: SPDESC: ORDERED: STOOL CULTURE, O P: KRISTIAN/KHLOE C. DIFF AMP DNA, STL LACTOFERRIN COMMENTS: VERBAL TO ISABELA DEUTSCH (FAMILY MED) BY BRISA at 1443 on 04/11/12. Results read back accurately. ACT WKST: CDT 04/11/12 #1 SH 04/11/12 #1 Procedure Result Verified Site > STOOL CULT SENSITIVITY Final 04/12/12- 0833 ML NEGATIVE FOR THE ENTERIC PATHOGENS - SALMONELLA, SHIGELLA, AEROMONAS, PLESIOMONAS AND YERSINIA. VIBRIO AND E. COLI 0157 NOT ROUTINELY TESTED FOR IN A STOOL CULTURE. PLEASE SUBMIT SAMPLE WITH SPECIFIC REQUEST FOR DESIRED ORGANISM(S). > STOOL SPECIMEN DESCRIPTION Final 04/10/12- 1440 ML STOOL COLOR BROWN STOOL FORM NONFORMED STOOL CONSISTENCY LIQUID OTHER COMMENTS THICK > CAMPYLOBACTER CULTURE Final 04/12/12- 0833 ML NO GROWTH OF CAMPYLOBACTER AFTER 48 HOURS > SHIGA TOXIN 1 AND 2 (EHEC) Final 04/12/12- 1233 ML SHIGA TOXIN 1 NEGATIVE BY IMMUNOCHROMATOGRAPHIC ASSAY SHIGA TOXIN 2 NEGATIVE BY IMMUNOCHROMATOGRAPHIC ASSAY > O P: GIARDIA/CRYPTO SCREEN Final 04/11/12- 1246 ML GIARDIA ANTIGEN NEGATIVE BY IMMUNOASSAY CRYPTOSPORIDIUM ANTIGEN NEGATIVE BY IMMUNOASSAY Giardia and cryptosporidium antigen testing performed by immunoassay. If patient is immunocompromised or has traveled to or is from a developing country, a full ova and parasite exam with microscopic (OPMIC) is recommended. All samples will be held one month in case full ova and parasite testing is requested. Contact the Microbiology Department at [phone]. TEST LIMITATIONS: DEPARTMENT OF PATHOLOGY, [address] [place] [address] [facility] Permit #[id number] Ant Balbuena M.D. Director Hiram Velásquez M.D. Prosthetic Dentist RUN DATE: 04/12/12 [facility] NMI LIVE PAGE 2 RUN TIME: 1233 Specimen Inquiry RUN USER: INTERFACE Name: SOFÍA KNOWLES Status: REG REF Re04/10/12 Age/Sex: 51/F Unit#: [id number] Location: [facility] : 62 -- -- CONTINU ED Procedure Result Verified Site O P: GIARDIA/CRYPTO SCREEN Final (continued) 04/11/12- 1246 As with all diagnostic procedures, the results obtained should be used in conjunction with other clinical information available the physician. Negative results can occur in samples containing antigen below lower limits of detection of the assay. The use of colonic washes, aspirates or other diluted sample types has not been established and could affect the performance of the assay. Stool samples contaminated with an oily or particulate base (eg. Barium, mineral oil etc.) could interfere with the test and are not recommended. > C. DIFFICILE AMPLIFIED DNA Final 04/11/12- 1444 ML C. DIFFICILE AMPLIF DNA POSITIVE: TOXIGENIC C. DIFFICILE WITH PATHOGEN LOCUS (PALOC) TEST LIMITATIONS: Assay does not distinguish between viable and non-viable organisms. Test results are to be used in conjunction with information available from the patient clinical evaluation and other diagnostic procedures. Two distinct groups have been identified that can harbor C. difficile asymptomatically at very high rates. Colonization at rates up to 50% and higher have been reported in infants and rates up to 32% in cystic fibrosis patients. > FECAL LACTOFERRIN (STOOL WBC) Final 04/11/12- 1409 ML FECAL LACTOFERRIN POSITIVE BY IMMUNOASSAY TEST LIMITATIONS: Assay detects elevated levels of lactoferrin released from fecal leukocytes as a marker of intestinal inflammation. The test may not be appropriate in immunocompromised persons. Fecal samples from breast fed infants should not be used with this assay. [facility] Permit #[id number] [address] [place] [address] DEPARTMENT OF PATHOLOGY, [address] [place] [address] [facility] Permit #[id number] Filomena Barnes M.D. Prosthetic Dentist 23 ---- RUN DATE: 10/08/09 [facility] NMI LIVE PAGE 1 RUN TIME: 1345 Specimen Inquiry RUN USER: INTERFACE -- Name: SOFÍA KNOWLES Status: REG REF Re10/06/09 Age/Sex: 48/F Unit#: [id number] Location: [facility] : 62 -- Specimen: [id number] Spec Date: 10/06/[address]: Sher jose MD Spec Type: SURGICAL P Received: 10/07/09-1149 Copies to: Janay Perry SPECIMEN 1) COLON POLYP AT 20 CM. 2) COLON POLYP AT 10 CM. HISTORY CLINICAL INFORMATION: Abdominal pain, increased frequency of stools like peanut butter , no weight loss. Irritable bowel syndrome GROSS DESCRIPTION 1) The specimen is received in formalin labelled Sofía Chichi Benson, Colon Polyp at 20 cm., and consists of a polypoid dark brown fragment of tissue measuring 1.3 x 1.0 x 0.5 cm. without a stalk. Bisected and submitted entirely in one cassette labelled 1. 2) The specimen is received in formalin labelled Sofía Knowles, Colon Polyp at 10 cm., and consists of one fragment of huerta-yellow tissue measuring 0.5 x 0.4 x 0.3 cm. Submitted entirely, one cassette labelled 2. DIAGNOSIS 1) Colon at 20 cm., biopsy: A. Tubulovillous adenoma. B. No high grade dysplasia or malignancy. 2) Colon at 10 cm., biopsy: A. Tubular adenoma. B. No high grade dysplasia or malignancy. Signed Electronically by: HIRAM VELÁSQUEZ 10/08/09 1345 -- -- DEPARTMENT OF PATHOLOGY, [address] [place] [address] [facility] Permit #[id number] Ant Balbuena M.D. Director Hiram Velásquez M.D. Property Custodian Dir sanchezor -- Procedures Date CPT Code Description Status 06/09/2018 Mammogram Completed 10/01/2016 Mammogram Completed 10/01/2015 Mammogram Completed 09/22/2015 02757 Vision Test- screening test of visual acuity, Completed quantitative, bila 01/16/2014 89402 Pulse Oximetry Completed 03/23/2013 Mammogram Completed 03/19/2013 75307 Vision Test- screening test of visual acuity, Completed quantitative, bila 10/10/2012 Colonoscopy Completed Encounters Type Date Location Provider CPT E/M Dx Office Visit 08/01/2018 10:00a [facility] Miley Lowe, [employer]NA[employer] IN[employer] 38800 N63.20 R53.83 M25.532 Office Visit 06/06/2018 9:30a [facility] Miley Lowe, [employer] 88851 Z12.31 L03.313 Office Visit 05/23/2018 10:00a [facility] Miley Lowe, [employer] 88420 L03.313 Office Visit 05/19/2018 8:15a [facility] Emelina Reyes, [facility] 64386 L03.313 Office Visit 04/20/2018 2:15p [facility] Office Emelina Reyes, [facility] 50615 W57.xxxA S80.862A R53.83 Office Visit 03/11/2017 10:00a Main Office Mathew Barboza M.D. 75881 F33.1 G43.009 F41.1 Office Visit 01/04/2017 3:30p [facility] Emelina Reyes, [facility] 23423 N34.1 Office Visit 10/29/2016 8:00a Main Office Mathew Barboza M.D. 66204 J45.20 Office Visit 09/14/2016 9:00a Main Office Mathew Barboza M.D. 94047 H10.89 F33.1 F41.1 G43.009 Office Visit 06/14/2016 4:00p Main Office Mathew Barboza M.D. 65890 F33.1 F41.1 G43.009 K21.9 H10.89 Office Visit 03/15/2016 4:40p Main Office Mathew Barboza M.D. 74964 F33.1 F41.1 G43.009 K58.0 Office Visit 01/20/2016 1:30p [facility] Daniela Flanagan 78524 F33.1 F41.9 Office Visit 09/22/2015 8:00a Main Office Mathew Barboza M.D. 70902 Z00.00 G43.009 K21.9 F33.1 K58.0 J45.998 Z01.00 Office Visit 08/15/2015 2:45p Main Office CURTIS SteenP 58604 300.00 311 Office Visit 06/24/2015 1:40p Main Office Mathew Barboza M.D. 99614 782.1 Office Visit 07/02/2014 8:00a Main Office Mathew Barboza M.D. 01336 564.1 461.8 346.10 695.3 Office Visit 06/05/2014 1:40p Main Office Constantine العلي M.D. 05317 564.1 Office Visit 01/16/2014 10:00a Main Office Isa Philip, [employer]NA[employer]MENT 04880 461.0 466.0 Office Visit 07/09/2013 3:00p Main Office Mathew Barboza M.D. 07807 461.8 530.81 346.10 311 782.3 Office Visit 06/11/2013 3:10p Main Office Mathew Barboza M.D. 16288 782.3 530.81 346.10 311 300.00 Office Visit 03/19/2013 3:20p Main Office Mathew Barboza M.D. 71183 V70.0 530.81 346.10 493.90 564.1 311 V72.0 300.00 272.1 Office Visit 01/22/2013 10:00a Main Office Mathew Barboza M.D. 27427 535.00 530.81 346.10 300.00 311 Office Visit 01/08/2013 9:10a Main Office Mathew Barboza M.D. 46386 535.00 346.10 780.79 300.00 311 Office Visit 10/06/2012 2:40p Main Office Mathew Barboza M.D. 93906 346.10 300.00 311 Office Visit 09/05/2012 1:40p Main Office Mathew Barboza M.D. 03721 346.10 300.00 311 493.90 Office Visit 04/10/2012 10:00a [facility] Office Janay Shell M.D. 28035 787.91 Office Visit 09/28/2011 9:20a Main Office Janay Shell M.D. 40911 784.0 723.1 995.3 Office Visit 09/29/2010 10:00a Main Office Janay Shell M.D. 76637 300.00 784.0 723.1 Office Visit 08/11/2010 9:20a Main Office Janay Shell M.D. 23026 300.00 784.0 723.1 Office Visit 04/14/2010 11:40a Main Office Janay Shell M.D. 83323 300.00 782.3 Office Visit 03/31/2010 12:20p Main Office Janay Shell M.D. 84176 300.00 Office Visit 02/27/2010 8:30a Main Office Janay Shell M.D. 55327 300.00 Office Visit 02/23/2010 8:00a [facility] Office Janay Shell M.D. 33557 300.00 346.10 Office Visit 12/10/2009 5:00p Main Office Janay Shell M.D. 07819 V70.0 790.6 355.6 300.14 Office Visit 10/21/2009 10:40a Main Office Janay Shell M.D. 92227 355.6 787.91 627.4 Office Visit 09/19/2009 11:00a Main Office Janay Shell M.D. 50470 719.47 355.6 564.1 782.3 783.1 Office Visit 08/22/2009 10:00a Main Office Janay Shell M.D. 08631 719.47 355.6 296.30 564.1 782.3 Plan of Care 08/01/2018 - Miley Lowe, NPN63.20 Unspecified lump in the left breast, unspecified quadrantNew Xrays:Ultrasound Breast Complete LeftComments:mammogram 05/2018will get ultrasound and check labsR53.83 Other fatigueNew Labs:CBC Electronic-ALL Lab CompaniComp Metabolic-ALL Lab CompaniTSH ([facility]) Comments:The patient was instructed to call or return to the office if there was no improvement .M25.532 Pain in left wristComments:RICE therapyget a braceNSAIDs if worsening or failure to improve- PTAllComments:~B_~U_Medication Management~b_~u_ Patient Understands medications she's taking? Yes No Are there Barriers to Adherence? Yes No Has the patient been asked about herbal supplements and therapies, and OTC meds? Yes No ~B_~U_Care Plan~b_~u_1. Patient has been queried about patient's goals/preferences and functional/lifestyle goals at relevant visits. If relevant, describe: na2. Treatment goals as explained to the patient: above3. Are there barriers to meeting treatment goals? Yes No If Yes, please describe:4. Self- Management goals as described to the patient: Yes NoFollow up:As always, we strongly encourage a healthy diet and making physical activity a part of your every day life. If you have questions about how or where to start, please contact the office.
[2018-08-18 17:00] VITALS: BP 119/86
--- NOTE | 2018-08-18 17:06 | UC ---
Headache HPI - HPI Summary HPI Summary: Per chairman ceo "Onset Migraine this morning. Pt trembling, crying, rapid respirations" -Of note is very difficult to obtain history from patient due to hystericus and crying. Most of history and questions are answered by her significant other who was in the room with her. She gets 9 Maxalt per month and has used all of them. She's been on estrogen for 30 years. History of hysterectomy. She's not seen a neurologist in decades. States she used to see one because she had some spot on her brain which she cannot identify further. Does not get auras with her migraines. Positive photophobia. Headache started this morning when she woke up. Actually down for a nap this afternoon after taking ibuprofen at 2 :00 in the afternoon. When she woke up 1 hour prior to presentation she had a severe headache. Positive nausea. Didn't take anything for her for pain because of GI upset. Her significant other states that he has seen her in this state before. Usually they give her shot and it resolves. - History Of Current Complaint Chief Complaint: UCHeadache Stated Complaint: MIGRAINE Time Seen by Provider: 08/18/18 17:04 Hx Last Menstrual Period: n/a Pain Intensity: 10 - Allergies/Home Medications Allergies/Adverse Reactions: Allergies Allergy/AdvReac Type Severity Reaction Status Date / Time codeine Allergy Vomiting Verified 08/18/18 16:54 hydrocodone Allergy Vomiting Verified 08/18/18 16:54 Sulfa (Sulfonamide Allergy Headache Verified 08/18/18 16:54 Antibiotics) Home Medications: Home Medications Ibuprofen TAB* [Advil TAB*] 600 mg PO Q6H PRN 08/18/18 [History Confirmed ] PMH/Surg Hx/FS Hx/Imm Hx Previously Healthy: Yes - Surgical History Surgical History: Yes Surgery Procedure, Year, and Place: Hysterectomy, Lung surgery to remove a pin that was aspirated, appendectomy, 3x laproscopy, tonsillectomy, 2 dental surgeries - Family History Known Family History: Positive: Cardiac Disease, Hypertension, Respiratory Disease - Social History Alcohol Use: Rare Substance Use Type: None Smoking Status (MU): Former Smoker When Did the Patient Quit Smoking/Using Tobacco: 2007 - Immunization History Most Recent Tetanus Shot: 2012 Review of Systems Constitutional: Fatigue Skin: Negative Eyes: Other ENT: Negative Respiratory: Negative Cardiovascular: Negative Gastrointestinal: Nausea Genitourinary: Negative Motor: Negative Neurovascular: Negative Musculoskeletal: Negative Neurological: Headache Psychological: Negative Is Patient Immunocompromised?: No All Other Systems Reviewed And Are Negative: Yes Physical Exam Triage Information Reviewed: Yes Appearance: Ill-Appearing, Pain Distress, Other: - Patient is in hysterics. Hyperventilating. Lites are off in exam room. Very difficult to obtain a history from her. Speech is not normal, the significant other states that this is normal in the state. Difficult to obtain vitals due to her state of hysterics. 1 L O2 nasal cannula is applied to help her breathing. Vital Signs: Initial Vital Signs Pulse 107 08/18/18 16:57 BP 119/86 08/18/18 16:57 Pulse Ox 98 08/18/18 16:57 Eyes: Positive: Other: - Unable to obtain due to pain and lack of cooperation. Neck exam: Normal Respiratory Exam: Normal Cardiovascular Exam: Normal Abdomen Description: Positive: Nontender, Soft Musculoskeletal: Positive: Other: - Repetitive tapping of feet and trembling of legs throughout entire office visit here. Neurological: Positive: Other: - Unable to obtain a neurological exam due to lack of cooperation. Psychological: Positive: Inconsolable Headache Course/Dx - Course Course Of Treatment: I recommended to pt and her that according to WHO, migraines are class III and IV contraindication to estrogen b/c increased risks of CVA. She reports she has been on it for 30 yrs (hysterctomy). she has not seen a neurologist in many years. I recommend that she re-evaluate with a neurologist for clearly severe, uncontrolled frequent migraines. -O2 1L NC applied to help her hyperventilation - Differential Dx/Diagnosis Differential Diagnosis/HQI/PQRI: CVA, Subdural Hematoma, Migraine Provider Diagnoses: severe migraine Discharge - Sign-Out/Discharge Documenting (check all that apply): Patient Departure All imaging exams completed and their final reports reviewed: No Studies - Discharge Plan Condition: Guarded Disposition: AGAINST MEDICAL ADVICE Referrals: Mathew Barboza MD [Primary Care Provider] - Additional Instructions: It was recommended that you go to the ER by ambulance due to the severity fo your symptoms and potential for a stroke/brain bleed, but you have declined. Please go directly to the ER without stopping anywhere on the way. - Billing Disposition and Condition Condition: GUARDED Disposition: Against Medical Advice
== END 2018-08-18 17:25 | disposition left against medical advice (07) ==
LOC: UCCORT 16:51
DX: M79.601 Pain in right arm (principal); Z53.21 Procedure and treatment not carried out due to patient leaving prior to being seen by health care provider
CPT/HCPCS: 99212; G0463

== ENCOUNTER 2019-08-04 12:19 | Emergency (ER) | payer OTHER ==
[2019-08-04 13:19] VITALS: BP 131/83
--- NOTE | 2019-08-04 13:44 | UC ---
Headache HPI - HPI Summary HPI Summary: Pt reports that she has had worsening ABDUL over the "last few days" . She states that she woke yesterday with upper back, neck and head pain that that has worsened over the last 24 hours. Pt states that she has a hx of migraines but this one is different than others. She states it is not the worst ABDUL she has had but that it is just different. Pt states that she has a new stress at work and that she is working in a hostile environment. She states that she took 1 maxalt this morning with no improvement in pain. She then took 800 mg of ibuprofen and states that her AH is beginning to improve, she does reports she has mild nausea. Denies one sided weakness, difficulty swallowing, or speaking. states pt is behaving as usual self not cognitive changes. - History Of Current Complaint Chief Complaint: UCHeadache Stated Complaint: HEADACHE SINUS Time Seen by Provider: 08/04/19 13:09 Hx Obtained From: Patient Hx Last Menstrual Period: n/a ?: No Onset/Duration: Gradual Onset, Lasting Days, Worse Since Onset Of Symptoms: Gradual, Still Present, Worse Since(Note Comment) - onset Initially Headache Was: Mild Currently Pain Is: Severe Pain Intensity: 8 Timing: Constant Character: Dull, Throbbing, Pressure, Migraine Location of Headache: Frontal, Temporal, Occipital Aggravating Factor(s): Bright Lights Allevating Factor(s): Nothing Associated Signs And Symptoms: Positive: Nausea, Neck Pain - Risk Factors SAH Risk Factors: Negative Meningitis Risk Factors: Negative SDH Risk Factors: Negative Temporal Arteritis Risk Factors: Female - Allergies/Home Medications Allergies/Adverse Reactions: Allergies Allergy/AdvReac Type Severity Reaction Status Date / Time codeine Allergy Vomiting Verified 08/04/19 13:19 hydrocodone Allergy Vomiting Verified 08/04/19 13:19 Sulfa (Sulfonamide Allergy Headache Verified 08/04/19 13:19 Antibiotics) nightshade family Allergy Diarrhea Uncoded 08/04/19 13:23 PMH/Surg Hx/FS Hx/Imm Hx Previously Healthy: Yes - Surgical History Surgical History: Yes Surgery Procedure, Year, and Place: Hysterectomy, Lung surgery to remove a pin that was aspirated, appendectomy, 3x laproscopy, tonsillectomy, 2 dental surgeries; RLE cyst; Left axilla benign lump 2017 - Family History Known Family History: Positive: Cardiac Disease, Hypertension, Respiratory Disease - Social History Occupation: Employed Full-time Lives: With Family Alcohol Use: Rare Substance Use Type: None Smoking Status (MU): Light Every Day Tobacco Smoker Have You Smoked in the Last Year: No When Did the Patient Quit Smoking/Using Tobacco: 2007 - Immunization History Most Recent Tetanus Shot: 2013 Vaccination Up to Date: Yes Review of Systems All Other Systems Reviewed And Are Negative: Yes Constitutional: Positive: Negative Skin: Positive: Negative Eyes: Positive: Photophobia ENT: Positive: Negative Respiratory: Positive: Negative Cardiovascular: Positive: Negative Gastrointestinal: Positive: Negative Genitourinary: Positive: Negative Motor: Positive: Negative Neurovascular: Positive: Negative Musculoskeletal: Positive: Myalgia - upper back and shoulders Neurological: Positive: Headache Psychological: Positive: Negative Is Patient Immunocompromised?: No Physical Exam Triage Information Reviewed: Yes Appearance: Pain Distress - tearful when discussing stressors at work Vital Signs: Initial Vital Signs Temp 98.9 F 08/04/19 13:06 Pulse 77 08/04/19 13:06 Resp 18 08/04/19 13:06 BP 131/83 08/04/19 13:06 Pulse Ox 98 08/04/19 13:06 Vital Signs Reviewed: Yes Eye Exam: Normal, Other - PERRLA ENT Exam: Normal ENT: Positive: Normal ENT inspection Dental Exam: Normal Neck exam: Normal Neck: Positive: Supple Respiratory Exam: Normal Cardiovascular Exam: Normal Musculoskeletal Exam: Normal Neurological Exam: Normal Neurological: Positive: Alert, Muscle Tone Normal Psychological Exam: Normal Skin Exam: Normal Headache Course/Dx - Differential Dx/Diagnosis Differential Diagnosis/HQI/PQRI: CVA, TIA, Migraine, Temporal Arteritis, Tension Headache Provider Diagnosis: Tension headache Discharge ED - Sign-Out/Discharge Documenting (check all that apply): Patient Departure All imaging exams completed and their final reports reviewed: No Studies - Discharge Plan Condition: Stable Disposition: HOME Prescriptions: Cyclobenzaprine TAB* [Flexeril 10 MG TAB*] 10 mg PO Q8H PRN #15 tab PRN Reason: Pain - Moderate Ondansetron HCl [Zofran] 4 mg PO Q8H PRN #12 tablet PRN Reason: Nausea Rizatriptan Benzoate [Maxalt Loss Prevention Consultant] 10 mg PO DAILY PRN #9 tab.rapdis PRN Reason: Headache Patient Education Materials: Diphenhydramine (By mouth), Tension Headache (ED) Referrals: [facility], [facility] [Primary Care Provider] - If Needed Additional Instructions: Please note that if your symptoms do not improve or worsen, please call 911 and go immediately to the closest emergency room. - Billing Disposition and Condition Condition: STABLE Disposition: Home
== END 2019-08-04 13:55 | disposition home or self-care (01) ==
LOC: UCCORT 12:19
DX: G44.209 Tension-type headache, unspecified, not intractable (principal); F17.200 Nicotine dependence, unspecified, uncomplicated
CPT/HCPCS: 99212; G0463